=== PATIENT | male | born 1995 | race Caucasian/White ===

== ENCOUNTER 2017-08-09 23:46 | Emergency (ER) | payer SELFPAY ==
[2017-08-09 23:53] VITALS: RESP 20; O2SAT 98
--- NOTE | 2017-08-10 00:01 | C.PDOC ---
History Of Present Illness Patient presents to ED with complaints of 4/10 abdominal pain, nausea, vomiting , diarrhea, and decreased PO intake since yesterday after eating pizza. Patient is actively vomiting in ED. Denies fever, chills. Time Seen by Provider: 08/10/17 00:01 Chief Complaint (Nursing): Abdominal Pain History Per: Patient History/Exam Limitations: no limitations Onset/Duration Of Symptoms: Days (1) Current Symptoms Are (Timing): Still Present Context: Food Severity: Moderate Pain Scale Rating Of: 4 Location Of Pain/Discomfort: Diffuse Radiation Of Pain To:: None Quality Of Discomfort: Unable To Describe Associated Symptoms: Nausea, Vomiting, Diarrhea, Other (Decreased PO intake). denies: Fever, Chills Exacerbating Factors: None Alleviating Factors: None Recent travel outside of the [place]: No Past Medical History Reviewed: Historical Data, Nursing Documentation, Vital Signs Vital Signs: Last Vital Signs Temp 99.2 F 08/10/17 01:35 Pulse 105 H 08/10/17 01:35 Resp 20 08/10/17 01:35 BP 107/66 08/10/17 01:35 Pulse Ox 98 08/10/17 03:19 - Medical History PMH: Anxiety, Asthma, Gastritis Family History: States: No Known Family Hx - Social History Hx Tobacco Use: No Hx Alcohol Use: No Hx Substance Use: No - Immunization History Hx Tetanus Toxoid Vaccination: No Hx Influenza Vaccination: No Hx Pneumococcal Vaccination: No Review Of Systems Constitutional: Negative for: Fever, Chills Gastrointestinal: Positive for: Nausea, Vomiting, Abdominal Pain, Diarrhea Physical Exam - Physical Exam Appears: Non-toxic, Other (Awake, Alert, Actively vomiting) Skin: Warm, Dry Head: Normacephalic Eye(s): bilateral: Normal Inspection Oral Mucosa: Moist Chest: Symmetrical, No Tenderness Cardiovascular: Rhythm Regular Respiratory: No Rales, No Rhonchi, No Wheezing Gastrointestinal/Abdominal: Soft, Tenderness (Diffuse), No Distention, No Guarding, No Rebound Neurological/Psych: Oriented x3 ED Course And Treatment - Laboratory Results Result Diagrams: 08/10/17 00:17 08/10/17 00:17 O2 Sat by Pulse Oximetry: 98 (Room air) Pulse Ox Interpretation: Normal Progress Note: Aministered Pepcid, Zofran Inj, and IV fluid. Ordered Urinalysis and blood work. 4am pt tolerating po. No vomiting Reevaluation Time: 04:07 Reassessment Condition: Improved Disposition Counseled Patient/Family Regarding: Studies Performed, Diagnosis, Need For Followup, Rx Given - Disposition Referrals: [facility] [Outside] Disposition: HOME/ ROUTINE Disposition Time: 00:01 Condition: FAIR Prescriptions: Ondansetron ODT [Zofran ODT] 1 odt PO BID PRN #6 odt PRN Reason: Nausea/Vomiting Instructions: Abdominal Pain (ED), Acute Nausea and Vomiting (ED) Forms: [facility] (Turkish), Work Excuse - Clinical Impression Clinical Impression: Abdominal pain, Nausea, Vomiting - Scribe Statement The provider has reviewed the documentation as recorded by the Haydenibgabriel Meredith All medical record entries made by the Haydenibgabriel were at my direction and personally dictated by me. I have reviewed the chart and agree that the record accurately reflects my personal performance of the history, physical exam, medical decision making, and the department course for this patient. I have also personally directed, reviewed, and agree with the discharge instructions and disposition.
[2017-08-10] MEDS ORDERED: Sodium Chloride 0.9% 1,000 ML ONE (00:18)
[2017-08-10] MEDS ORDERED: Sodium Chloride 0.9% 1,000 ML IV ONE (00:19)
[2017-08-10 00:21] LABS: BASO % 0.1 % (0.0-2.0); EOS # 0.2 K/uL (0.0-0.7); HEMATOCRIT 48.3 % (35.0-51.0); LYMPH # 0.7 K/uL (1.0-4.3); MEAN CELL VOLUME 89.3 fL (80.0-94.0); MEAN CORPUSCULAR HEMOGLOBIN 30.5 pg (27.0-31.0); MEAN CORPUSCULAR HGB CONC 34.2 g/dL (33.0-37.0); MEAN PLATELET VOLUME 9.6 fL (7.2-11.7); MONO % 5.7 % (0.0-10.0); PLATELET COUNT 256 K/uL (130-400); RED CELL DISTRIBUTION WIDTH 12.9 % (11.5-14.5)
[2017-08-10 00:34] LABS: ALB/GLOB RATIO 1.4 (1.0-2.1); ALKALINE PHOSPHATASE 79 U/L (38-126); ALT/SGPT 54 U/L (21-72); AST/SGOT 24 U/L (17-59); BILIRUBIN,TOTAL 3.5 mg/dL (0.2-1.3); BLOOD UREA NITROGEN 15 mg/dL (9-20); CALCIUM 9.1 mg/dl (8.6-10.4); CARBON DIOXIDE 27 mmol/L (22-30); CHLORIDE 101 mmol/L (98-107); GFR AFRICAN-AMERICAN > 60; GLUCOSE,RANDOM 127 mg/dL (75-110); POTASSIUM 3.6 mmol/L (3.6-5.2); SODIUM 140 mmol/L (132-148); TOTAL PROTEIN 8.2 g/dL (6.3-8.3)
[2017-08-10 01:36] VITALS: BP 107/66; PULSE 105; TEMP 99.2
[2017-08-10] MEDS ORDERED: Lactated Ringer's 1,000 ML IV ONE (01:44)
[2017-08-10 01:46] LABS: URINE BILIRUBIN NEGATIVE (NEGATIVE); URINE BLOOD NEGATIVE (NEGATIVE); URINE COLOR Yellow (YELLOW); URINE GLUCOSE (UA) NORMAL (Normal); URINE KETONE 2+ mg/dL (NEGATIVE); URINE LEUKOCYTE ESTERASE NEG Leu/uL (Negative); URINE PROTEIN NEGATIVE (NEGATIVE); URINE UROBILINOGEN NORMAL mg/dL (0.2-1.0); WBC URINE 4 /hpf (0-5)
[2017-08-10] MEDS ORDERED: Lactated Ringer's 1,000 ML ONE (01:51)
[2017-08-10 04:00] LABS: EOSINOPHIL 1 % (0-4); NEUTROPHIL 89 % (50-75); TOTAL CELLS COUNTED 100
== END 2017-08-10 04:16 | disposition home or self-care (01) ==
LOC: C.ER 23:46
DX: R10.9 Unspecified abdominal pain (principal); R11.2 Nausea with vomiting, unspecified
CPT/HCPCS: 80053; 81001; 83690; 85025; 96361; 96374; 96375; 99284; J1885; J2405; J7040; J7120

== ENCOUNTER 2018-02-14 13:23 | Emergency (ER) | payer MEDICAID ==
[2018-02-14 13:32] VITALS: BP 143/75; PULSE 80; RESP 16; TEMP 98.9; O2SAT 98
--- NOTE | 2018-02-14 14:32 | C.PDOC ---
History Of Present Illness 23 year old male presents to the emergency department with complaints of four days of pain to the left lower teeth. Patient reports that his let lower premolar cracked, and over the past few days became swollen and worse. His symptoms are associated with swelling of the jaw. He denies fever. Time Seen by Provider: 02/14/18 13:37 Chief Complaint (Nursing): Dental Pain History Per: Patient History/Exam Limitations: no limitations Onset/Duration Of Symptoms: Days (4), Worse Since Current Symptoms Are (Timing): Still Present Quality: Positive for: "Pain" Past Medical History Reviewed: Historical Data, Nursing Documentation, Vital Signs Vital Signs: Last Vital Signs Temp 98.9 F 02/14/18 13:29 Pulse 80 02/14/18 13:29 Resp 16 02/14/18 13:29 BP 143/75 02/14/18 13:29 Pulse Ox 98 02/14/18 14:33 - Medical History PMH: Anxiety, Asthma, Gastritis Surgical History: No Surg Hx Family History: States: No Known Family Hx - Social History Hx Tobacco Use: No Hx Alcohol Use: No Hx Substance Use: No - Immunization History Hx Tetanus Toxoid Vaccination: No Hx Influenza Vaccination: No Hx Pneumococcal Vaccination: No Review Of Systems Constitutional: Negative for: Fever ENT: Positive for: Mouth Pain, Other (tooth pain) Physical Exam - Physical Exam Appears: Non-toxic, No Acute Distress Skin: Warm, Dry Head: Atraumatic, Other (normal range of motion of the jaw) Eye(s): bilateral: Normal Inspection Nose: Normal Oral Mucosa: Moist, No Trismus Teeth: Other (left lower premolar cracked ) Gingiva: Swelling, Tender, Abscess Neck: Normal, Supple ED Course And Treatment O2 Sat by Pulse Oximetry: 98 (RA) Pulse Ox Interpretation: Normal Progress Note: Plan: Amoxil 500mg PO. Motrin 600mg PO. Ultram 50mg PO Disposition - Disposition Referrals: [facility] [Outside] Disposition: HOME/ ROUTINE Disposition Time: 14:25 Condition: STABLE Additional Instructions: Follow up with the Dental Clinic within 1-2 days. Return if worsened. Prescriptions: Amoxicillin [Amoxil 500 mg Cap] 500 mg PO TID #29 cap Ibuprofen [Motrin] 600 mg PO TID #21 tab traMADol [Ultram] 50 mg PO Q6 PRN #15 tab PRN Reason: Pain Instructions: Tooth Abscess (DC) Forms: [facility] (Slovenian) - Clinical Impression Clinical Impression: Dental abscess - PA / SPECIAL EDUCATION TEACHER / Resident Statement MD/DO has reviewed & agrees with the documentation as recorded. - Scribe Statement The provider has reviewed the documentation as recorded by the Scribe (Bernard Rod) All medical record entries made by the Scribe were at my direction and personally dictated by me. I have reviewed the chart and agree that the record accurately reflects my personal performance of the history, physical exam, medical decision making, and the department course for this patient. I have also personally directed, reviewed, and agree with the discharge instructions and disposition.
== END 2018-02-14 14:46 | disposition home or self-care (01) ==
LOC: C.ER 13:23
DX: K04.7 Periapical abscess without sinus (principal)